=== PATIENT | female | born 1965 | race Caucasian/White ===

== ENCOUNTER 2018-07-31 16:28 | Emergency (ER) | payer MEDICARE ==
[~2018-07-31] VITALS: Ht 160 cm; Wt 69.9 kg
[2018-07-31 16:28] VITALS: BP 119/80
== END 2018-07-31 18:05 | disposition home or self-care (01) ==
LOC: ER 16:32
DX: M65.831 Other synovitis and tenosynovitis, right forearm (principal); F32.9 Major depressive disorder, single episode, unspecified; Z60.2 Problems related to living alone
CPT/HCPCS: 73110